=== PATIENT | male | born 1950 | race Caucasian/White ===

== ENCOUNTER 2019-04-19 16:24 | Emergency (ER) | payer MEDICAID, SELFPAY ==
--- NOTE | ~2019-04-19 | CT_ITS ---
EXAMINATION: CT abdomen pelvis w con DATE: 04/19/2019 21:15 INDICATION: Abdomen pain TECHNIQUE: Computed tomography (CT) of the abdomen and pelvis was performed with 100 cc Omnipaque 350 intravenous contrast. The dose-length product was 271.69 mGy-cm. Automated exposure control and iter ative reconstruction technique were employed. COMPARISON: CT dated 05/07/2004 FINDINGS: Lung bases are unremarkable. Heart size is normal. No significant vascular abnormality. No lymphadenopathy. The liver, spleen, pancreas, adrenal glands are unremarkable. There are small subcentimeter hypodensi ties of the kidneys, most likely benign. Gallbladder is present. Bowel pattern is nonobstructive. The appendix is not visualized. No secondary findings to suggest appendicitis. There is enlarged heterog eneously enhancing prostate gland. There is bladder wall thickening. No bowel obstruction. No free ai r or free fluid.. Mild lumbar spondylosis. IMPRESSION: 1. Enlarged heterogeneous prostate gland. Consider prostatitis in the appropriate clinical setting. 2: Mild bladder wall thickening may be due to secondary to bladder outlet obstruction or cystitis. Reviewed, dictated and finalized at location A. ER ENAMELING IMPRESSION: 1. Enlarged heterogeneous prostate gland. Consider prostatitis in the appropria te clinical setting. 2: Mild bladder wall thickening may be due to secondary to bladder outlet obst ruction or cystitis.
[2019-04-19 16:38] VITALS: BP 115/65; PULSE 80; RESP 16; TEMP 37.1; O2SAT 100
[2019-04-19 16:53] LABS: Basophils Percent Auto 0.2 % (0.2-1.2); Eosinophils Percent Auto 0.1 % (0-4.4); Hematocrit 43.8 % (42.0-52.0); Hemoglobin 14.8 g/dL (14.0-18.0); Immature Granulocyte Absolute 0.15 K/mm3 (0.00-0.031); Immature Granulocyte Percent A 0.9 % (0-0.5); Lymphocytes Absolute Auto 1.16 K/mm3 (0.9-3.2); Lymphocytes Percent Auto 6.9 % (18.3-44.2); Mean Corpuscular HGB Conc 33.8 g/dl (32-36); Mean Corpuscular Volume 88.7 fl (80-100); Mean Platelet Volume 11.1 fl (7.4-10.4); Monocytes Absolute Auto 0.5 K/mm3 (0.1-0.6); Monocytes Percent Auto 3.1 % (2.6-8.5); Neutrophils Percent Auto 88.8 % (45.5-73.1); Platelet Count Result 165 k/mm3 (150-375); Red Blood Count 4.94 M/mm3 (4.6-6.20); Red Cell Distribution Width 13.3 % (11.5-14.5); White Blood Count 16.8 K/mm3 (4.5-10.0)
[2019-04-19 17:05] LABS: Blood Urea Nitrogen 22 mg/dL (9-20); Calcium 9.1 mg/dL (8.4-10.2); Carbon Dioxide 25 mmol/L (22-30); Chloride 100 mmol/L (98-107); Estimated CRCL calculation 54 ml/min; Estimated Glomerular Filt Rate > 60; Glucose 162 mg/dL (75-110); Potassium 3.6 mmol/L (3.4-5.0); Sodium 137 mmol/L (137-145)
[2019-04-19 18:15] LABS: Add Urine Microscopic? YES; Amorphous Sediment Urine Few; Appearance Urine Cloudy (Clear); Bacteria Urine 4+ /hpf; Bilirubin Urine Negative (Negative); Blood Urine 2+ (Negative); Color Urine Amber (Yellow); Glucose Urine UA Negative (Negative); Ketones Urine 1+ mg/dL (Negative); Leukocyte Esterase Ur 1+ LEU/UL (Negative); Mucus Urine Heavy /lpf; Nitrate Urine Negative (Negative); Protein Urine 2+ mg/dL (Negative); Squamous Epithelial Cell Urine Rare /hpf (Few); WBC Urine >75 /hpf
[2019-04-19 18:16] LABS: Specific Grav Ur 1.033 (1.001-1.035)
--- NOTE | 2019-04-19 20:36 | ED.MALEGU ---
HPI - Male Genitourinary General Chief complaint: Urogenital-Male Stated complaint: BILATERAL FLANK PAIN Time Seen by Provider: 04/19/19 20:32 Source: patient and RN notes reviewed Mode of arrival: ambulatory History of Present Illness HPI Narrative: A 68 y/o male presents to the ED with worsening ANIVAL flank pain since yesterday. He states that the pain radiates into his lower back and that he has had some decreased urine out put. He denies any fevers, chills, N/V/D, dysuria, hematuria, urinary frequency, SOB, or CP. MD Complaint: other (ANIVAL flank pain) Onset (ago): day(s) (yesterday) Duration: progressively worsening Location: right flank and left flank Associated symptoms: Reports urinary retention and other (lower back pain) Related Data Allergies Allergy/AdvReac Type Severity Reaction Status Date / Time No Known Allergies Allergy Unknown Verified 04/19/19 20:57 No Known Allergies Allergy Unknown Uncoded 04/19/19 20:57 Review of Systems Review of Systems: All systems reviewed & are unremarkable except as noted in HPI and below Constitutional: Constitutional: Denies chills and Denies fever(s) Cardiovascular: Cardiovascular: Denies chest pain Respiratory: Respiratory: Denies dyspnea Gastrointestinal: Gastrointestinal: Denies diarrhea, Denies nausea and Denies vomiting Genitourinary: Genitourinary: Denies hematuria, Denies dysuria, Reports flank pain (ANIVAL), Denies urinary frequency and Reports other (Urinary retention) Musculoskeletal: Musculoskeletal: Reports back pain (lower) [facility] Past Medical History Medical History (Updated 04/19/19 @ 22:25 by Silvano Barros DO) Finger fracture History of inguinal hernia Hypercholesteremia Surgical History Surgical History (Updated 04/19/19 @ 20:54 by Damien Ortega) History of appendectomy History of inguinal hernia repair History of tonsillectomy Social History Social History Gender identity (if verbalized by the patient): Male Comments PCP: Dr. Lawton. Exam Narrative: Exam Narrative: APPEARANCE: No acute distress, nontoxic, resting in bed EYES: EOMI HEENT: Normocephalic, atraumatic, OMM RESPIRATORY: No respiratory distress Clear to auscultation bilaterally with no rhonchi wheezing or rales. CARDIOVASCULAR: Regular rate and rhythm without murmurs rubs or gallops. ABDOMINAL: Soft, nontender, nondistended, no rebound or guarding MUSCULOSKELETAl: Moves all extremities. No clubbing, cyanosis or edema. NEURO: Awake and alert. Following commands, speech normal, no focal deficits SKIN:: Warm, dry. No rashes lesions or abrasions PSYCHIATRIC: Normal affect/mood, Course Course Emergency Course: Discussed with patient results of workup and diagnosis. Discussed need for follow-up with primary care, proper use of medication, and reasons to return to the emergency department. Patient understands and agrees to current treatment plan Consultations Consultation #1: Discussed case with Dr. Peña (Urology). Suggests starting the pt on 2 weeks of Cipro and to have them follow up with them in the office. Date: 04/19/19 Time: 21:35 Vital Signs Vital signs: Vital Signs Temperature 98.7 F 04/19/19 16:38 Pulse Rate 80 04/19/19 16:38 Respiratory Rate 16 04/19/19 16:38 Blood Pressure 115/65 04/19/19 16:38 Pulse Oximetry 100 04/19/19 16:38 Temperature 98.7 F 04/19/19 16:38 Pulse Rate 70 04/19/19 22:10 Respiratory Rate 16 04/19/19 16:38 Blood Pressure 105/83 04/19/19 22:10 Pulse Oximetry 100 04/19/19 22:10 MDM - Male Genitourinary Lab Data Result diagrams: 04/19/19 16:45 04/19/19 16:45 Labs: Lab Results 04/19/19 04/19/19 04/19/19 Range/Units 16:45 16:45 18:05 WBC 16.8 H (4.5-10.0) K/mm3 RBC 4.94 (4.6-6.20) M/mm3 Hgb 14.8 (14.0-18.0) g/dL Hct 43.8 (42.0-52.0) % MCV 88.7 (80-100) fl MCH 30.0 (26-34) pg MCHC 33.8 (32-36) g/dl RDW 13.3 (11.5-14.5) % Plt Cou
[2019-04-19] MEDS: SODIUM CHLORIDE 0.9% IV 1,000 ML 999 ML IV CONT (20:58)
[2019-04-19 21:17] LABS: Lactic Acid Reflex 1.6 mmol/L (0.7-2.1)
[2019-04-19 22:10] VITALS: BP 105/83; PULSE 70; O2SAT 100
[2019-04-19] MEDS: CIPROFLOXACIN 500 MG TAB PO (22:13)
[2019-04-19 23:32] VITALS: BP 105/63
--- NOTE | 2019-04-23 21:46 | PC.NURSE ---
LATE ENTRY This note is being entered to document information to the patient's record. The following information was omitted on [04/23/19], by [Jaye Ruano]. This pt received 1000ml of normal saline on 04/19/19 that was completed at 2141.
== END 2019-04-20 00:02 | disposition home or self-care (01) ==
PROVIDERS: Emergency Medicine; Emergency Provider Emergency Medicine; PCP Internal Medicine
DX: N41.0 Acute prostatitis (principal); E78.00 Pure hypercholesterolemia, unspecified; R93.41 Abnormal radiologic findings on diagnostic imaging of renal pelvis, ureter, or bladder
CPT/HCPCS: 36415; 74177; 80048; 81001; 83605; 85025; 87040; 87077; 87086; 87088; 87186; 96361; 96365; 99284; A9270; J0696; J7030; Q9967

== ENCOUNTER 2019-10-11 09:36 | Emergency (ER) | payer MEDICAID, SELFPAY ==
--- NOTE | ~2019-10-11 | XR_ITS ---
XR ribs LT 2V DATE: 10/11/2019 10:13 INDICATION: Left low anterior rib pain after injury leaning over chronic TECHNIQUE: 3 views of left ribs COMPARISON: None FINDINGS: There is a subtle acute distal anterior left 10th rib fracture with one cortical width disp lacement. No other apparent recent rib fracture is noted. The left lung is clear. No pleural effusion or pneumothorax. Mild levoscoliosis and degenerative spurring of the thoracic spine. IMPRESSION: Minimally displaced acute distal anterior left 10th rib fracture Reviewed, dictated and finalized at location B.
--- NOTE | 2019-10-11 09:45 | ED.GENADULT ---
HPI - General Adult General Chief complaint: Unspecified Stated complaint: side pain Time Seen by Provider: 10/11/19 09:57 Source: patient and RN notes reviewed Mode of arrival: ambulatory Limitations: no limitations History of Present Illness HPI narrative: 68-year-old male presents with concern for left side pain. Reports 3-day history of left side, rib pain. He reports feeling a pop as he reached over the side of his truck with increasing pain over several days. He reports pain increases with movement, deep breathing and palpation. He denies any redness, bruising. Denies falls, trauma. Denies difficulty breathing, cough, fever, history of smoking, history of osteoporosis. Denies hematuria, dysuria, fever, nausea. MD complaint: Left side pain Related Data Allergies Allergy/AdvReac Type Severity Reaction Status Date / Time No Known Allergies Allergy Unknown Verified 10/11/19 09:57 Review of Systems Review of Systems: Narrative: CONSTITUTIONAL: Denies malaise, chills, sweats, or fever. CARDIOVASCULAR: Denies chest pain, palpitations, or edema. RESPIRATORY: Denies cough or dyspnea. GASTROINTESTINAL: Denies abdominal pain, nausea, vomiting GENITOURINARY: Denies dysuria or hematuria. SKIN: Denies bruising, redness MUSCULOSKELETAL: Reports left side rib pain All systems reviewed & are unremarkable except as noted in HPI and below PMFSH Past Medical History Medical History (Updated 10/11/19 @ 10:28 by Mary Bella NP) Finger fracture History of inguinal hernia Hypercholesteremia Surgical History Surgical History (Updated 04/19/19 @ 20:54 by Damien Ortega) History of appendectomy History of inguinal hernia repair History of tonsillectomy Social History Social History Gender identity (if verbalized by the patient): Male Comments At time of signature, agree with nursing past medical, surgical, social and family history. There is no relevant family history pertinent to the presenting complaint Exam Narrative: Exam Narrative: GENERAL: Well-appearing, well-nourished, and in no acute distress. HEAD: Normocephalic EYES: PERRLA, conjunctivae clear ENT: Mucous membranes moist. NECK: Supple. CHEST: No respiratory distress. Clear to auscultation. No bony deformities, no asymmetry. Speaks in full sentences. HEART: Regular rate and rhythm. MUSCULOSKELETAL: Left arm has normal range of motion, normal strength and sensation. Left lateral torso/rib tenderness to palpation with no ecchymosis or erythema SKIN: Warm, dry, no rash. NEURO: Alert and oriented x3. PSYCH: Normal mood and affect Course Course Emergency Course: Patient is aware of diagnosis, understands and agrees to treatment plan. Anticipatory guidance given. Patient agrees to follow-up as directed and is aware of reasons to seek care at the emergency department. Portions of this record may have been created with voice recognition software Vital Signs Vital signs: Reviewed. Medical Decision Making MDM Narrative Medical decision making narrative: Exam findings and imaging show no acute concerns or changes; patient is non-toxic appearing and is in no distress. Patient is appropriate for outpatient treatment and follow-up. Differential Diagnosis Differential Diagnosis: Nephrolithiasis, rib fracture, pulmonary contusion, rib dislocation, pneumothorax, muscle strain Imaging Data My impression: Images reviewed, interpreted by radiologist, agree, see report. Radiologist's impression: XR ribs LT 2V DATE: 10/11/2019 10:13 INDICATION: Left low anterior rib pain after injury leaning over chronic TECHNIQUE: 3 views of left ribs COMPARISON: None FINDINGS: There is a subtle acute distal anterior left 10th rib fracture with one cortical width displacement. No other apparent recent rib fracture is noted. The left lung is clear. No pleural effusion or pneumothorax. Mild levoscoliosis and degenerative spurring of the thoracic spine. IMPRESSION: [place]
[2019-10-11 09:50] VITALS: BP 130/70; PULSE 58; RESP 16; TEMP 36.6; O2SAT 100
== END 2019-10-11 10:37 | disposition home or self-care (01) ==
PROVIDERS: Emergency Provider Nurse Practitioner; PCP Internal Medicine
DX: S22.32XA Fracture of one rib, left side, initial encounter for closed fracture (principal); X50.9XXA Other and unspecified overexertion or strenuous movements or postures, initial encounter; E78.00 Pure hypercholesterolemia, unspecified
CPT/HCPCS: 71100; 99213; G0463

== ENCOUNTER 2022-04-28 21:32 | Emergency (ER) | payer MEDICAID, SELFPAY ==
[2022-04-28 21:45] VITALS: BP 123/80; PULSE 66; RESP 16; TEMP 36.5; O2SAT 100
--- NOTE | 2022-04-28 22:04 | ED.EYEPROB ---
HPI - Eye Problem General Chief complaint: Eye Problems Stated complaint: chemical exposure to R eye Time Seen by Provider: 04/28/22 22:03 History of Present Illness HPI Narrative: This is a 71M w/history of myopia who splashed a small amount of chlorox cleaning solution in the right eye about 30-45 minutes prior to arrival. He complains of some irritation and foreign body sensation. He denies loss of vision. He states he rinsed the right eye thoroughly at home with water prior to arrival. Related Data Allergies Allergy/AdvReac Type Severity Reaction Status Date / Time No Known Allergies Allergy Unknown Verified 10/11/19 09:57 Review of Systems Review of Systems: CONSTITUTIONAL: Denies fever, chills, or sweats. EYES: Right eye irritation and redness, Denies visual changes, or discharge. CARDIOVASCULAR: Denies chest pain, palpitations, or edema. RESPIRATORY: Denies cough or dyspnea. GASTROINTESTINAL: Denies abdominal pain, nausea, vomiting, or diarrhea. NEUROLOGIC: Denies headache, numbness, dizziness, or weakness. [facility] Past Medical History Medical History Finger fracture History of inguinal hernia Hypercholesteremia Surgical History Surgical History History of appendectomy History of inguinal hernia repair History of tonsillectomy Social History Social History Gender identity (if verbalized by the patient): Male Exam Narrative: GENERAL: Well-developed, well-nourished, appears uncomfortable HEAD: Normocephalic, atraumatic. EYES: PERRLA and EOMI. Mild scleral injection at the lateral aspect of the right eye. Fluorescin stain negative. pH 7 ENT: Mucous membranes moist. Oropharynx without tonsillar hypertrophy exudate or other lesions. CHEST: Clear to auscultation. No respiratory distress. No wheezes rales or rhonchi HEART: Regular rate and rhythm. No murmur heard. Normal peripheral pulses. EXTREMITIES: Normal range of motion. No edema. NEURO: No focal deficits. Alert and oriented x3. Course Course Emergency Course: 22:35 - pH normal. Visual acuity 20/50 bilaterally. Fluorescein staining not concerning for globe rupture or corneal abrasion/ulcer. Will discharge with Erythromycin ointment, artificial tears and recommendation for ophthalmology follow up. Discussed return and emergency precautions including signs/symptoms of corneal ulcer and vision loss. The patient voiced understanding and is comfortable with the plan. All questions answered to the patient's satisfaction. Vital Signs Vital signs: Vital Signs Temperature 97.7 F 04/28/22 21:45 Pulse Rate 66 04/28/22 21:45 Respiratory Rate 16 04/28/22 21:45 Blood Pressure 123/80 04/28/22 21:45 Pulse Oximetry 100 04/28/22 21:45 Oxygen Delivery Room Air 04/28/22 21:45 Temperature 97.7 F 04/28/22 21:45 Pulse Rate 66 04/28/22 21:45 Respiratory Rate 16 04/28/22 21:45 Blood Pressure 123/80 04/28/22 21:45 Pulse Oximetry 100 04/28/22 21:45 Oxygen Delivery Room Air 04/28/22 21:45 MDM - Eye Problem MDM Narrative Medical decision making narrative: Plan: pH testing, fluorescin stain, reassess Differential Diagnosis Differential diagnosis: Likely corneal abrasion, conjunctivitis, corneal ulcer and other (chemical conjunctivitis, other) Discharge Plan Discharge Clinical Impression: Chemical keratoconjunctivitis of right eye Patient Disposition: Home, Self-Care Condition: Stable Instructions: Antibiotic Form, Chemical Eye [place] (ED) Additional Instructions: You were seen in the emergency department. I suspect you have a mild chemical conjunctivitis. Your eye exam is not concerning for injury to the cornea. I recommend topical antibiotics, eye drops and follow up with an accounting machine servicer. Please call for a follow up appointment. If you develo
== END 2022-04-28 22:49 | disposition home or self-care (01) ==
PROVIDERS: Emergency Provider Preventive Medicine Aerospace Medicine; PCP Internal Medicine
DX: H16.201 Unspecified keratoconjunctivitis, right eye (principal)
CPT/HCPCS: 99283; A9270

== ENCOUNTER 2022-11-06 12:17 | Emergency (ER) | payer MEDICAID, SELFPAY ==
[2022-11-06 12:17] VITALS: BP 113/73; PULSE 69; RESP 16; TEMP 36.1; O2SAT 100
--- NOTE | 2022-11-06 12:48 | ED.GENADULT ---
HPI - General Adult General Chief complaint: Wound/Laceration Stated complaint: spider bite Time Seen by Provider: 11/06/22 12:25 History of Present Illness HPI narrative: 71-year-old male presented emergency department for evaluation of a spider bite to the dorsal surface of his right hand at the base of the middle finger. Patient states the bite occurred approximately 2 hours ago. Patient presented to the ED concerned of localized swelling. Related Data Allergies Allergy/AdvReac Type Severity Reaction Status Date / Time No Known Allergies Allergy Unknown Verified 11/06/22 12:19 Review of Systems Review of Systems: All systems reviewed & are unremarkable except as noted in HPI and below PMFSH Past Medical History Medical History Finger fracture History of inguinal hernia Hypercholesteremia Surgical History Surgical History History of appendectomy History of inguinal hernia repair History of tonsillectomy Social History Social History Gender identity (if verbalized by the patient): Male Exam Narrative: APPEARANCE: Well appearing, no pain, no distress, well-nourished. HEAD: normocephalic, atraumatic. EYES: PERRLA/EOMI, conjunctivae clear. NOSE: Normal no drainage RESPIRATORY: Airway patent, respirations nonlabored. Clear to auscultation bilaterally, no rales, rhonchi, wheezing. CARDIOVASCULAR: Regular rate and rhythm without murmurs rubs or gallops. ABDOMINAL: Soft, nontender, nondistended, normal bowel sounds MUSCULOSKELETAL: Moves all extremities. Strength/ROM intact, No edema, No calf tenderness. NEURO: Alert. Cranial nerves II through XII intact. Grossly intact SKIN: Erythema on dorsum of right hand at base of middle finger. No tenderness, no fluctuance Course Course Emergency Course: 71-year-old male presented the ED for evaluation of swelling to the base of the right middle finger secondary to a spider bite. Patient does have some mild erythema. Patient is being started on antibiotics and was provided Benadryl for possible underlying allergic response. Patient was encouraged of close follow-up with his primary care physician. Vital Signs Vital signs: Vital Signs Temperature 97 F L 11/06/22 12:17 Pulse Rate 69 11/06/22 12:17 Respiratory Rate 16 11/06/22 12:17 Blood Pressure 113/73 11/06/22 12:17 Pulse Oximetry 100 11/06/22 12:17 Oxygen Delivery Room Air 11/06/22 12:17 Temperature 97 F L 11/06/22 12:17 Pulse Rate 69 11/06/22 12:17 Respiratory Rate 16 11/06/22 12:17 Blood Pressure 113/73 11/06/22 12:17 Pulse Oximetry 100 11/06/22 12:17 Oxygen Delivery Room Air 11/06/22 12:17 Medical Decision Making Vital Signs Vital Signs: Vital Signs Temperature 97 F L 11/06/22 12:17 Pulse Rate 69 11/06/22 12:17 Respiratory Rate 16 11/06/22 12:17 Blood Pressure 113/73 11/06/22 12:17 Pulse Oximetry 100 11/06/22 12:17 Oxygen Delivery Room Air 11/06/22 12:17 Temperature 97 F L 11/06/22 12:17 Pulse Rate 69 11/06/22 12:17 Respiratory Rate 16 11/06/22 12:17 Blood Pressure 113/73 11/06/22 12:17 Pulse Oximetry 100 11/06/22 12:17 Oxygen Delivery Room Air 11/06/22 12:17 Discharge Plan Discharge Clinical Impression: Spider bite Patient Disposition: Home, Self-Care Condition: Stable Instructions: Antibiotic Form, Insect Bite or Sting (ED) Additional Instructions: Antibiotic as directed till completed. Benadryl as needed for allergic response and itching. Have close follow-up with your primary care physician for wound check. If you have any worsening symptoms please call or return the emergency department. Prescriptions: New cephalexin 500 mg capsule 500 mg PO Q12H 7 Days Qty: 14 0RF No Action tramadol 50 mg tablet
[2022-11-06] MEDS: CEPHALEXIN 500 MG CAPSULE PO (12:53)
[2022-11-06] MEDS: diphenhydrAMINE HCl CAP 25 MG CAPSULE PO (12:53)
== END 2022-11-06 13:00 | disposition home or self-care (01) ==
PROVIDERS: Emergency Provider Emergency Medicine; PCP Internal Medicine
DX: T63.301A Toxic effect of unspecified spider venom, accidental (unintentional), initial encounter (principal); E78.00 Pure hypercholesterolemia, unspecified
CPT/HCPCS: 99283; A9270

== ENCOUNTER 2023-01-12 09:46 | Emergency (ER) | payer MEDICAID, SELFPAY ==
--- NOTE | ~2023-01-12 | XR_ITS ---
XR knee LT min 4V 01/12/2023 10:28 INDICATION: Left knee pain PROCEDURE: 2 views left knee COMPARISON: No prior studies for comparison. FINDINGS: Fracture, dislocation or subluxation is not identified. There is a moderate joint effusion. The soft tissues appear within normal limits. No foreign bodies are identified. IMPRESSION: 1: Moderate joint effusion. Reviewed, dictated and finalized at location B. IMPRESSION: 1: Moderate joint effusion.
[2023-01-12 09:49] VITALS: BP 132/78; PULSE 63; RESP 16; TEMP 37; O2SAT 100
--- NOTE | 2023-01-12 10:27 | ED.LOWEXIN ---
HPI - Extremity Injury (Lower) General Chief Complaint: Extremity Injury, Lower Stated Complaint: left leg pain Time Seen by Provider: 01/12/23 10:16 History of Present Illness HPI Narrative: 72-year-old male presents to the emergency room for evaluation of a left knee injury. Patient states 5 days ago he caught both of his legs between the lawnmower and the ground. States was able to remove his right leg from underneath the lawnmower but the majority of the weight was on his left knee. States he is ambulatory since the injury. Pain is worse with ambulation. No other injuries Related Data Allergies Allergy/AdvReac Type Severity Reaction Status Date / Time No Known Allergies Allergy Unknown Verified 01/12/23 09:51 Review of Systems Review of Systems: CONSTITUTIONAL: Denies fever, chills, or sweats. EYES: Denies visual changes, redness, or discharge. ENT: Denies rhinorrhea, congestion, sore throat, or otalgia. CARDIOVASCULAR: Denies chest pain, palpitations, or edema. RESPIRATORY: Denies cough or dyspnea. GASTROINTESTINAL: Denies abdominal pain, nausea, vomiting, or diarrhea. GENITOURINARY: Denies dysuria or hematuria. SKIN: Denies rash or itching. MUSCULOSKELETAL: Reports left knee pain NEUROLOGIC: Denies headache, numbness, dizziness, or weakness. PSYCHIATRIC: Denies anxiety or depression. [facility] Past Medical History Medical History Finger fracture History of inguinal hernia Hypercholesteremia Surgical History Surgical History History of appendectomy History of inguinal hernia repair History of tonsillectomy Social History Social History Gender identity (if verbalized by the patient): Male Exam Narrative: GENERAL: Well-appearing, well-nourished, no physical limitations, and in no acute distress. HEAD: Normocephalic, atraumatic. EYES: Conjunctivae normal, PERRLA and EOMI. CHEST: Clear to auscultation. No respiratory distress. No wheezes rales or rhonchi. HEART: Regular rate and rhythm. No murmur heard. Normal peripheral pulses. BACK: No cervical/thoracic/lumbar tenderness, step-offs, bony abnormality; FROM EXTREMITIES: Left knee: +TTP with STS to medial surface of patella. No patellar tracking. FROM. No joint laxity. Negative anterior posterior drawer test. No laxity with varus and valgus stress applied. Negative Vira's test SKIN: Warm, dry, no rash. No noted wounds NEURO: No focal deficits. Alert and oriented x3. MAEW. CN's II-XI intact bilaterally, normal gait PSYCH: Cooperative. Normal mood and affect. Course Vital Signs Vital signs: Vital Signs Temperature 37.0 C 01/12/23 09:49 Pulse Rate 63 01/12/23 09:49 Respiratory Rate 16 01/12/23 09:49 Blood Pressure 132/78 01/12/23 09:49 Pulse Oximetry 100 01/12/23 09:49 Temperature 37.0 C 01/12/23 09:49 Pulse Rate 63 01/12/23 09:49 Respiratory Rate 16 01/12/23 09:49 Blood Pressure 132/78 01/12/23 09:49 Pulse Oximetry 100 01/12/23 09:49 Discharge Plan Discharge Clinical Impression: Contusion of knee, left Qualifiers: Encounter type: initial encounter Qualified Code(s): S80.02XA - Contusion of left knee, initial encounter Patient Disposition: Home, Self-Care Condition: Stable Instructions: Antibiotic Form Prescriptions: New naproxen 500 mg tablet 500 mg PO BID Qty: 20 0RF No Action tramadol 50 mg tablet 50 mg PO Q6H PRN (Reason: pain) Qty: 20 0RF erythromycin 5 mg/gram (0.5 %) ointment 1 applic RIGHT EYE QID Qty: 50 0RF Rx Instructions: for 1 week carboxymethylcellulose sodium [Refresh Tears] 0.5 % drops 1 drp RIGHT EYE Q2H Qty: 15 0RF Rx Instructions: for 1 week cephalexin 500 mg capsule 500 mg PO Q12H 7 Days Qty: 14 0RF Follow-up/Referrals: Vijay Mora MD [Ph
[2023-01-12 11:09] VITALS: PULSE 67; RESP 16; O2SAT 100
== END 2023-01-12 11:26 | disposition home or self-care (01) ==
LOC: ANHED 11:11
PROVIDERS: Emergency Provider Nurse Practitioner Family; PCP Internal Medicine
DX: S80.02XA Contusion of left knee, initial encounter (principal); E78.00 Pure hypercholesterolemia, unspecified; W28.XXXA Contact with powered lawn mower, initial encounter
CPT/HCPCS: 73564; 99283

== ENCOUNTER 2023-02-08 07:43 | Outpatient (CLI) | payer MEDICAID, SELFPAY ==
--- NOTE | ~2023-02-08 | MR_ITS ---
EXAMINATION: MR knee LT wo con DATE: 02/08/2023 08:24 INDICATION: Left lower leg injury TECHNIQUE: Magnetic resonance imaging (MRI) of the left knee was performed without intravenous contra st. Sequences included coronal PD-weighted FSE, coronal PD-weighted FS FSE, sagittal T2-weighted FSE , sagittal PD-weighted FS FSE and axial PD weighted fat saturated FSE. COMPARISON: None. FINDINGS: Medial compartment: Likely complex tear at the medial side of the posterior horn of the medial meniscus beginning along t he inner free edge as a full-thickness radial tear but transitioning to a partial-thickness tear exte nding along the inferior articular surface and with suggestion of an associated small horizontal comp onent to the tear as it tracks posterior medially to the periphery of the meniscus. There is diffuse mild partial-thickness cartilage loss along the weightbearing medial femoral condyle but with smooth chondral surface. Additional partial thickness cartilage loss with smooth chondral surface and mild u nderlying subarticular edema-like signal change along the posterior and posteromedial rim of the medi al tibial plateau. Lateral compartment: Lateral meniscus is normal. Articular cartilage is normal. Patellofemoral compartment: Full-thickness chondral fissuring without degenerative subchondral changes at the inferior aspect of the medial patellar facet. Remaining cartilage in the patellofemoral compartment is normal. Ligaments and tendons: Anterior and posterior cruciate ligaments are normal. The medial collateral ligament and fibular kathie ateral ligament complex are normal. The extensor mechanism is normal. The visualized medial and later al hamstring tendons as well as the iliotibial band are normal. Fluid: Moderate-sized knee joint effusion with associated mild synovitis at the suprapatellar and posterior recesses. No loose osteochondral bodies identified. Osseous/other: Mild marrow edema associated with a small low signal intensity trabecular fracture line at the head o f the fibula underlying the posterior medial aspect of the proximal tibiofibular articulation with no evident cortical disruption. Otherwise unremarkable marrow signal with no pathologic marrow replacin g process. IMPRESSION: 1. Small nondisplaced trabecular fracture line without evident cortical interruption at the proximal head of the fibula. 2. Complex tear at the posterior horn of the medial meniscus. 3. Mild osteoarthritis in the medial and patellofemoral compartments. 4. Moderate-sized left knee joint effusion. Reviewed, dictated and finalized at location A. [employer] [facility] PRINCIPAL IMPRESSION: 1. Small nondisplaced trabecular fracture line without evident cortical interru ption at the proximal head of the fibula. 2. Complex tear at the posterior horn of the medial meniscus. 3. Mild osteoarthritis in the medial and patellofemoral compartments. 4. Moderate-sized left knee joint effusion.
== END 2023-02-08 07:44 | disposition home or self-care (01) ==
PROVIDERS: PCP Internal Medicine; Visit Provider Orthopaedic Surgery
DX: S83.232A Complex tear of medial meniscus, current injury, left knee, initial encounter (principal); X58.XXXA Exposure to other specified factors, initial encounter; M17.12 Unilateral primary osteoarthritis, left knee; M25.462 Effusion, left knee
CPT/HCPCS: 73721

== ENCOUNTER 2023-09-04 20:44 | Emergency (ER) | payer MEDICAID, SELFPAY ==
--- NOTE | ~2023-09-04 | XR_ITS ---
[id number] Ordering provider: Aniceto Adamson MD History: . R sided chest pain. . Comparison: None. FINDINGS: BONES: Multiple rib fractures are seen in the right lower thorax anteriorly involving the seventh, an d eighth ribs. Possibility of fracture in the ninth rib is not excluded. LUNGS: No effusions or infiltrates. No pneumothorax. SOFT TISSUES: Normal. IMPRESSION: Multiple rib fractures in the right lower thorax. Reviewed, dictated and finalized at location A.
--- NOTE | 2023-09-04 20:47 | ECG_ITS ---
Test Date: 2023-09-04 20:51:06 Measurements Intervals [place] Rate: 60 P: 87 MI: 204 QRS: 70 QRSD: 93 T: 68 QT: 403 QTc: 405 Interpretive Statements SINUS RHYTHM WITH BORDERLINE FIRST-DEGREE AV BLOCK NORMAL ELECTROCARDIOGRAM No previous ECG available for comparison Electronically Signed On 09-05-2023 15:09:49 CDT by Mariano Amador M.D.
[2023-09-04 20:52] VITALS: BP 139/77; PULSE 62; RESP 12; TEMP 36.6; O2SAT 99
[2023-09-04 21:03] LABS: Basophils Absolute Auto 0.1 K/mm3 (0.0-0.1); Basophils Percent Auto 0.9 % (0.2-1.2); Eosinophils Absolute Auto 0.5 K/mm3 (0-0.3); Eosinophils Percent Auto 6.4 % (0-4.4); Hematocrit 44.6 % (42.0-52.0); Hemoglobin 15.2 g/dL (14.0-18.0); Immature Granulocyte Absolute 0.02 K/mm3 (0.00-0.031); Immature Granulocyte Percent A 0.3 % (0-0.5); Lymphocytes Absolute Auto 1.61 K/mm3 (0.9-3.2); Lymphocytes Percent Auto 20.4 % (18.3-44.2); Mean Corpuscular HGB Conc 34.1 g/dl (32-36); Mean Corpuscular Hemoglobin 30.3 pg (26-34); Mean Platelet Volume 10.8 fl (7.4-10.4); Monocytes Absolute Auto 0.5 K/mm3 (0.1-0.6); Monocytes Percent Auto 6.4 % (2.6-8.5); Neutrophils Absolute Auto 5.2 K/mm3 (1.3-6.7); Neutrophils Percent Auto 65.6 % (45.5-73.1); Platelet Count Result 196 k/mm3 (150-375); Red Blood Count 5.01 M/mm3 (4.6-6.20); Red Cell Distribution Width 13.5 % (11.5-14.5); White Blood Count 7.9 K/mm3 (4.5-10.0)
[2023-09-04 21:13] LABS: INR 0.9; Prothrombin Time 12.8 Seconds (11.1-14.7)
[2023-09-04 21:14] LABS: Alanine Aminotransferase 24 U/L (6-50); Albumin Level 4.3 g/dL (3.5-5.1); Alkaline Phosphatase 99 U/L (38-126); Anion Gap 8 mmol/L (4-12); Aspartate Amino Transferase 26 U/L (17-59); Bilirubin,Total 0.6 mg/dL (0.2-1.3); Blood Urea Nitrogen 26 mg/dL (9-20); Calcium 9.2 mg/dL (8.4-10.2); Carbon Dioxide 23 mmol/L (22-30); Chloride 109 mmol/L (98-107); Estimated CRCL calculation 50 ml/min; Estimated Glomerular Filt Rate 60; Glucose 113 mg/dL (65-110); Lipase 244 U/L (23-300); Partial Thromboplastin Time 25.1 Seconds (22.3-36.8); Potassium 3.9 mmol/L (3.4-5.0); Sodium 140 mmol/L (137-145)
--- NOTE | 2023-09-04 21:19 | ED.GENADULT ---
HPI - General Adult General Chief complaint: Chest Pain Stated complaint: rib pain radiating to chest Time Seen by Provider: 09/04/23 21:04 History of Present Illness HPI narrative: This is a 72-year-old male presenting ED with a chief complaint right-sided chest pain. Last 3 days patient says he has had pain in his right anterior lower ribs. Today he started develop intermittent sharp pain in the upper right side of his chest. This pain last for 2-3 seconds at a time and only occurs every 2-3 hours. He has not taken anything for pain control. He has no other symptoms. Patient denies any falls or trauma Related Data Allergies Allergy/AdvReac Type Severity Reaction Status Date / Time No Known Allergies Allergy Unknown Verified 09/04/23 20:45 [facility] Past Medical History Medical History Finger fracture History of inguinal hernia Hypercholesteremia Surgical History Surgical History History of appendectomy History of inguinal hernia repair History of tonsillectomy Social History Social History (System 08/12/23 @ 09:14 by Felix Whittington) Smoking status: Never smoker Substance use type: does not use Living arrangements: with family Occupation/Education: retired Gender identity (if verbalized by the patient): Male Exam Narrative: APPEARANCE: No apparent distress. Head: atraumatic. EYES: EOMI, NOSE: Atraumatic NECK: Trachea midline RESPIRATORY: No increased rate of breathing clear auscultation CARDIOVASCULAR: RRR, No peripheral edema ABDOMINAL: Non-distended MUSCULOSKELETAl: tenderness to palpation over the right ribcage NEURO: Alert. Moving 4/4 extremities SKIN:: Warm, dry. Normal color PSYCHIATRIC: Normal affect Course Vital Signs Vital signs: Vital Signs Temperature 97.8 F 09/04/23 20:52 Pulse Rate 62 09/04/23 20:52 Respiratory Rate 12 09/04/23 20:52 Blood Pressure 139/77 09/04/23 20:52 Pulse Oximetry 99 09/04/23 20:52 Oxygen Delivery Room Air 09/04/23 20:52 Temperature 97.8 F 09/04/23 20:52 Pulse Rate 62 09/04/23 20:52 Respiratory Rate 12 09/04/23 20:52 Blood Pressure 139/77 09/04/23 20:52 Pulse Oximetry 99 09/04/23 20:52 Oxygen Delivery Room Air 09/04/23 20:[address] [facility] Narrative Medical decision making narrative: -Course: 72-year-old male presenting with reproducible right rib pain pressure over his right ribs for the last 1 week. X-rays positive for nondisplaced rib fractures. No pneumothorax or hemothorax. Patient's pain improved with Toradol/Tylenol. laboratory studies within normal limits. EKG without ischemic findings. Patient educated sequelae of rib fractures and given education on incentive spirometry. Follow up primary care follow-up return precautions given for pneumonia. -DDX includes but is not limited to: Rib fracture, rib contusion, pleurisy, PE, pneumonia, lung cancer -Co-morbidities complicating care: high cholesterol -Independent interpretation of studies: Chest x-ray showed multiple nondisplaced rib fractures. no hemothorax or pneumothorax. labs within normal limits including trop Independent EKG interpretation: Rhythm [sinus], Rate [60], [place] -[normal], [place] -[normal], QRS [narrow], QTC [normal], T waves -[negative for concerning inversions], ST Segments - [Negative for concerning elevations] Final interpretations: [Normal Sinus Rhythm] -Interventions: Toradol, Tylenol -Shared decision making / Disposition: Discharge -RX Motrin, Tylenol, lidocaine patch, incentive Vital Signs Vital Signs: Vital Signs Temperature 97.8 F 09/04/23 20:52 Pulse Rate 62 09/04/23 20:52 Respiratory Rate 12 09/04/23 20:52 Blood Pressure 139/77 09/04/23 20:52 Pulse Oximetry 99 09/04/23 20:52 Oxygen Delivery Room Air 09/04/23 20:52 Temperature 97.8 F 09/04/23 20:52 Pulse Rate
[2023-09-04 21:26] LABS: Troponin I < 0.012 ng/mL (0.000-0.034)
[2023-09-04 21:30] VITALS: O2SAT 97
[2023-09-04] MEDS: ACETAMINOPHEN 500 MG TABLET 1000 MG PO (21:32)
[2023-09-04] MEDS: KETOROLAC 15 MG/ML VIAL (*BKC) IV PUSH (21:33)
--- NOTE | 2023-09-04 23:09 | PC.NURSE ---
Assumed care of patient after receiving bedside nurse report from JAZMYN Chou.
[2023-09-04 23:28] VITALS: BP 120/76; PULSE 62; RESP 17; O2SAT 100
[2023-09-04 23:38] VITALS: BP 128/71; PULSE 57; RESP 16; O2SAT 98
== END 2023-09-04 23:40 | disposition home or self-care (01) ==
PROVIDERS: Emergency Provider Emergency Medicine
DX: S22.41XA Multiple fractures of ribs, right side, initial encounter for closed fracture (principal); E78.00 Pure hypercholesterolemia, unspecified; I44.0 Atrioventricular block, first degree; X58.XXXA Exposure to other specified factors, initial encounter
CPT/HCPCS: 36415; 71101; 80053; 83690; 84484; 85025; 85610; 85730; 93005; 96374; 99284; A9270; J1885

== ENCOUNTER 2023-09-09 10:07 | Emergency (ER) | payer MEDICAID, SELFPAY ==
[2023-09-09 10:08] VITALS: BP 134/78; PULSE 71; RESP 16; TEMP 36.6; O2SAT 100
--- NOTE | 2023-09-09 10:35 | ED.GENADULT ---
[facility] - General Adult General Chief complaint: Skin/Abscess/Foreign Body Stated complaint: Skin rash Time Seen by Provider: 09/09/23 10:35 Source: patient Mode of arrival: ambulatory Limitations: no limitations History of Present Illness HPI narrative: This is a 72-year-old male who presents to the ED with chief complaint of a right-sided rash to the thorax x2 days. Patient states that he was diagnosed with rib fracture a few days ago and given some lidocaine patches. he thought maybe he was having a reaction to having lidocaine patches on the right side. reports the rash is painful. Denies itchiness. Denies fevers, chills, nausea, vomiting. Denies any immunocompromised condition. Related Data Allergies Allergy/AdvReac Type Severity Reaction Status Date / Time No Known Allergies Allergy Unknown Verified 09/04/23 20:45 Review of Systems Review of Systems: All systems as dictated in [facility] Past Medical History Medical History Finger fracture History of inguinal hernia Hypercholesteremia Surgical History Surgical History History of appendectomy History of inguinal hernia repair History of tonsillectomy Social History Social History (System 08/12/23 @ 09:14 by Felix Whittington) Smoking status: Never smoker Substance use type: does not use Living arrangements: with family Occupation/Education: retired Gender identity (if verbalized by the patient): Male Exam Narrative: GENERAL: Well-appearing, well-nourished, and in no acute distress. HEAD: Normocephalic, atraumatic. EYES: PERRLA and EOMI. ENT: Nares clear, no rhinorrhea or epistaxis. Mucous membranes moist. Oropharynx without tonsillar hypertrophy exudate or other lesions. NECK: Supple. No adenopathy or masses. CHEST: No respiratory distress. Clear to auscultation. No wheezes rales or rhonchi HEART: Regular rate and rhythm. No murmur heard. Normal peripheral pulses. ABDOMEN: Soft, nontender, nondistended, normal active bowel sounds. MSK: Normal range of motion. No edema. SKIN: Erythematous vesicular rash following a dermatomal pattern on the right thorax. Does not cross midline. Extends from mid chest around to T-spine. Vesicles are closed. NEURO: Alert and oriented x4. No focal deficits. PSYCH: Normal mood and affect. Course Vital Signs Vital signs: Vital Signs Temperature 97.9 F 09/09/23 10:08 Pulse Rate 71 09/09/23 10:08 Respiratory Rate 16 09/09/23 10:08 Blood Pressure 134/78 09/09/23 10:08 Pulse Oximetry 100 09/09/23 10:08 Oxygen Delivery Room Air 09/09/23 10:08 Temperature 97.9 F 09/09/23 10:08 Pulse Rate 71 09/09/23 10:08 Respiratory Rate 16 09/09/23 10:08 Blood Pressure 134/78 09/09/23 10:08 Pulse Oximetry 100 09/09/23 10:08 Oxygen Delivery Room Air 09/09/23 10:08 Medical Decision Making MDM Narrative Medical decision making narrative: this is a 72-year-old male who presents to the ED with chief complaint of right-sided rash to the thorax for the past couple of days. Vitals are normal. Exam shows dermatomal the saccular rash consistent with shingles. He has no compromising condition. He is well-appearing otherwise. Patient will be given prescription for valacyclovir. He has pain medications at home that are helping. He has follow-up in a couple of days with PCP. Pt will be discharged in stable condition. Return precautions given and supportive measures discussed. Pt is understanding and agreeable with plan for discharge and follow-up with PCP. Vital Signs Vital Signs: Vital Signs Temperature 97.9 F 09/09/23 10:08 Pulse Rate 71 09/09/23 10:08 Respiratory Rate 16 09/09/23 10:08 Blood Pressure 134/78 09/09/23 10:08 Pulse Oximetry 100 09/09/23 10:08 Oxygen Delivery Room Air 09/09/23 10:08 Temperature 97.9 F 09/09/23 1
== END 2023-09-09 11:23 | disposition home or self-care (01) ==
LOC: ANHED 10:39
PROVIDERS: Emergency Provider Physician Assistant
DX: B02.9 Zoster without complications (principal); E78.00 Pure hypercholesterolemia, unspecified
CPT/HCPCS: 99283